=== PATIENT | male | born 1985 | race Hispanic/Latino ===

== ENCOUNTER 2019-09-24 16:30 | Emergency (ER) | payer SELFPAY ==
[2019-09-24 16:56] LABS: #Basophils 0.2 thou/uL (0.0-0.2); #Eosinphils 0.1 thou/uL (0.0-0.7); #Lymphocytes 4.8 thou/uL (1.20-3.40); #Monocytes 1.3 thou/uL (0.11-0.59); #Neutrophils 9.7 thou/uL (1.40-6.50); %Basophils 1.2 % (0.0-1.0); %Eosinophils 0.7 % (0.0-10.0); %Lymphocytes 30.1 % (21.0-51.0); %Monocytes 7.8 % (0.0-10.0); %Neutrophils 60.2 % (42.0-75.0); Hemoglobin 16.9 g/dL (14.0-18.0); Mean Corpuscular HGB CONC 32.3 g/dL (32.0-36.0); Mean Corpuscular Volume 86.6 fL (78.0-98.0); Mean Platelet Volume 10.6 fL (7.4-10.4); Platelet Count 272 thou/uL (130-400); RBC Distribution Width 12.4 % (11.5-14.5); Red Blood Cell (RBC) Count 6.05 mill/uL (4.70-6.10); White Blood Cell (WBC) Count 16.1 thou/uL (4.8-10.8)
[2019-09-24] MEDS ORDERED: Sodium Chloride 0.9% 1,000 ML ONE (17:04)
[2019-09-24 17:13] LABS: ALT (SGPT) 58 U/L (8-55); AST (SGOT) 44 U/L (5-34); Albumin 4.3 g/dL (3.5-5.0); Alkaline Phosphatase 93 U/L (40-110); Anion Gap 26 mmol/L (10-20); BUN (Urea Nitrogen) 16 mg/dL (8.9-20.6); Bilirubin, Total 0.6 mg/dL (0.2-1.2); CK (CPK) 136 U/L (30-200); Calc. Creatinine Clearance 0 mL/min (70-130); Calcium 9.2 mg/dL (7.8-10.44); Carbon Dioxide 13 mmol/L (22-29); Chloride 101 mmol/L (98-107); Estimated GFR-MDRD 48; Glucose 459 mg/dL (70-105); Lipase 36 U/L (8-78); Potassium 4.1 mmol/L (3.5-5.1); Protein, Total 7.3 g/dL (6.0-8.3); Sodium 136 mmol/L (136-145)
[2019-09-24 17:17] LABS: Base Excess-Venous -7.8 mmol/L (-2.0 to 3.0); Bicarbonate (HCO3v) 17.6 mmol/L (22.0-28.0); CO2 Tension (PvCO2) 35.6 mmHg (40.0-50.0); Calcium, Ionized 1.11 mmol/L (See Comments:); Chloride 103 mmol/L (98-107); Hemoglobin - Calc 19.7 g/dL (14.0-18.0); Potassium 3.9 mmol/L (3.5-5.1); Sodium 139 mmol/L (138-145); T. Carbon Dioxide 18.7 mmol/L (22.0-28.0); vO2 Saturation-calc 99.7 % (60.0-85.0)
[2019-09-24 17:20] LABS: Bilirubin Negative (Negative); Blood, Urine Trace (Negative); Glucose, Urine (Dipstick) >=1000 mg/dL (Negative); Leukocyte Negative (Negative); Nitrite Negative (Negative); Protein, Urine (Dipstick) > or equal to 300 mg/dL (Neg-Trace); Urobilinogen 0.2 mg/dL (Less than 2)
[2019-09-24 17:21] LABS: Clarity Hazy (Clear)
[2019-09-24 17:27] LABS: Bacteria/HPF Rare-Few HPF (None Seen); RBC/HPF 0-3 HPF (0-3); Squamous Epithelial 0-3 HPF (0-3); WBC/HPF 0-3 HPF (0-3)
[2019-09-24] MEDS ORDERED: Sodium Chloride 0.9% 100 ML ONE (17:27)
[2019-09-24] MEDS ORDERED: Insulin Regular 300 UNITS/3 ML VIAL ONE (17:27)
[2019-09-24 17:28] LABS: Yeast-Budding 1+ HPF (None Seen)
--- NOTE | 2019-09-24 17:36 | CT ---
CT BRAIN: Date: 09-24-2019 Provided Clinical History: Injury. FINDINGS: The ventricular system appears normal in size and morphology. There is no evidence for intracranial h emorrhage or mass effect. There is left supraorbital and left pre-zygomatic soft tissue swelling with out evidence for skull fracture. IMPRESSION: No evidence for intracranial hemorrhage or skull fracture. POS: [facility]
== END 2019-09-24 17:45 | disposition short-term general hospital (02) ==
LOC: MADERS 16:30
DX: T21.22XA Burn of second degree of abdominal wall, initial encounter (principal); S00.83XA Contusion of other part of head, initial encounter; S00.12XA Contusion of left eyelid and periocular area, initial encounter; S00.31XA Abrasion of nose, initial encounter; E11.10 Type 2 diabetes mellitus with ketoacidosis without coma; T31.0 Burns involving less than 10% of body surface; I10 Essential (primary) hypertension; Z79.84 Long term (current) use of oral hypoglycemic drugs; Z79.899 Other long term (current) drug therapy; Y09 Assault by unspecified means; X08.8XXA Exposure to other specified smoke, fire and flames, initial encounter
CPT/HCPCS: 70450; 80053; 81003; 81015; 82330; 82550; 82803; 83690; 84484; 85014; 85025; 93005; 96374; 96376; J1815; J3490; J7050

== ENCOUNTER 2020-03-10 19:48 | Emergency (ER) | payer SELFPAY ==
[2020-03-10] MEDS ORDERED: methylPREDNISolone Sod Succ/PF 125 MG/2 ML VIAL ONE (20:44)
[2020-03-10] MEDS ORDERED: diphenhydrAMINE 25 MG CAP ONE (20:44)
== END 2020-03-10 21:10 | disposition home or self-care (01) ==
LOC: MADERS 19:48
DX: T63.441A Toxic effect of venom of bees, accidental (unintentional), initial encounter (principal)
CPT/HCPCS: 96372; 99282; J2930; Q0163

== ENCOUNTER 2020-04-02 19:35 | Emergency (ER) | payer SELFPAY ==
[~2020-04-02 19:35] MED LIST: Sodium Chloride 0.9% 1,000 ML BAG ONE
[2020-04-02] MEDS ORDERED: Acetaminophen 500 MG TAB ONE (20:23)
[2020-04-02] MEDS ORDERED: Ibuprofen 800 MG TAB ONE (20:23)
[2020-04-02] MEDS ORDERED: Ondansetron PF 4 MG/2 ML Vial ONE (20:24)
--- NOTE | 2020-04-02 21:12 | RAD ---
PORTABLE CHEST: 04/02/20 PROVIDED CLINICAL HISTORY: Cough and fever. FINDINGS: The cardiac silhouette appears enlarged, which may be at least partially on the basis of portable karen hnique. No focal consolidation, pleural fluid or pneumothorax apparent. IMPRESSION: No definite evidence for an acute cardiopulmonary process. POS: [facility]
[2020-04-02 21:26] LABS: ALT (SGPT) 23 U/L (8-55); AST (SGOT) 30 U/L (5-34); Alkaline Phosphatase 82 U/L (40-110); Anion Gap 17 mmol/L (10-20); BUN (Urea Nitrogen) 13 mg/dL (8.9-20.6); Bilirubin, Total 0.6 mg/dL (0.2-1.2); Calc. Creatinine Clearance 0 mL/min (70-130); Calcium 8.4 mg/dL (7.8-10.44); Carbon Dioxide 24 mmol/L (22-29); Chloride 102 mmol/L (98-107); Globulin 3.4 g/dL (2.4-3.5); Glucose 211 mg/dL (70-105); Potassium 3.7 mmol/L (3.5-5.1); Protein, Total 7.4 g/dL (6.0-8.3); Sodium 139 mmol/L (136-145)
[2020-04-02 21:30] LABS: Hemoglobin 16.8 g/dL (14.0-18.0); Mean Corpuscular HGB CONC 31.7 g/dL (32.0-36.0); Mean Corpuscular Hemoglobin 26.7 pg (27.0-31.0); Mean Corpuscular Volume 84.2 fL (78.0-98.0); Mean Platelet Volume 12.7 fL (7.4-10.4); Platelet Count 138 thou/uL (130-400); RBC Distribution Width 11.1 % (11.5-14.5); Red Blood Cell (RBC) Count 6.29 mill/uL (4.70-6.10); White Blood Cell (WBC) Count 6.1 thou/uL (4.8-10.8)
[2020-04-02 21:31] LABS: #Lymphocytes 1.8 thou/uL (1.20-3.40); #Monocytes 0.6 thou/uL (0.11-0.59); #Neutrophils 3.7 thou/uL (1.40-6.50); %Basophils 0.6 % (0.0-1.0); %Eosinophils 0.1 % (0.0-10.0); %Lymphocytes 29.5 % (21.0-51.0); %Monocytes 9.1 % (0.0-10.0); %Neutrophils 60.6 % (42.0-75.0); Anisocytosis SLIGHT = 6-15 cells (100X) (0-5/hpf); MDiff Complete? YES; Platelet Morphology Comment Appears Adequate
[2020-04-02 23:46] LABS: Bilirubin Negative (Negative); Blood, Urine Negative (Negative); Clarity Clear (Clear); Glucose, Urine (Dipstick) 500 mg/dL (Negative); Ketone, Urine Trace mg/dL (Negative); Leukocyte Negative (Negative); Nitrite Negative (Negative); Protein, Urine (Dipstick) > or equal to 300 mg/dL (Neg-Trace); Urobilinogen 0.2 mg/dL (Less than 2)
[2020-04-02 23:47] LABS: Specific Gravity, Urine 1.025 (1.002-1.036)
[2020-04-02 23:52] LABS: Bacteria/HPF Rare-Few HPF (None Seen); Mucous/LPF 3+ LPF (<2+); RBC/HPF None Seen HPF (0-3); Squamous Epithelial 0-3 HPF (0-3); WBC/HPF None Seen HPF (0-3)
[2020-04-03 17:42] LABS: SARS-CoV-2 MS2 Positive; SARS-CoV-2 N Gene Negative; SARS-CoV-2 S Gene Negative; SARS-CoV-2 by NAA Not Detected (NotDetected); SARS-CoV-2 orf1ab Negative
== END 2020-04-03 00:36 | disposition home or self-care (01) ==
LOC: MADERS 19:35
DX: J06.9 Acute upper respiratory infection, unspecified (principal); Z20.828 Contact with and (suspected) exposure to other viral communicable diseases; E10.9 Type 1 diabetes mellitus without complications
CPT/HCPCS: 71045; 80053; 81003; 81015; 83605; 84443; 84484; 85025; 85379; 87040; 87635; 87804; 94760; 96374; J2405; J7050; U0003

== ENCOUNTER 2021-07-05 08:26 | Outpatient (CLI) | payer OTHER, SELFPAY ==
[2021-07-05 09:04] LABS: ALT (SGPT) 50 U/L (8-55); AST (SGOT) 30 U/L (5-34); Albumin 4.2 g/dL (3.5-5.0); Alkaline Phosphatase 97 U/L (40-110); Anion Gap 13 mmol/L (10-20); BUN (Urea Nitrogen) 12 mg/dL (8.9-20.6); Bilirubin, Total 0.7 mg/dL (0.2-1.2); Calc. Creatinine Clearance 0 mL/min (70-130); Calcium 9.5 mg/dL (7.8-10.44); Carbon Dioxide 24 mmol/L (22-29); Chloride 106 mmol/L (98-107); Globulin 3.4 g/dL (2.4-3.5); Glucose 214 mg/dL (70-105); Potassium 4.1 mmol/L (3.5-5.1); Protein, Total 7.6 g/dL (6.0-8.3); Sodium 139 mmol/L (136-145)
[2021-07-05 12:25] LABS: Hemoglobin A1c 10.1 % (4.0-6.0)
== END 2021-07-05 08:27 | disposition home or self-care (01) ==
LOC: MADLAB 08:26
PROVIDERS: ATTEND Family Medicine
DX: Z68.36 Body mass index [BMI] 36.0-36.9, adult (principal)
CPT/HCPCS: 36415; 80053; 83036